=== PATIENT | female | born 1970 | race Two or more races ===

== ENCOUNTER 2024-05-19 06:00 | Day surgery (SDC) | payer OTHER ==
[2024-05-13 12:02] VITALS: BP 95/65
[~2024-05-19] VITALS: Ht 165.1 cm; Wt 107.5 kg
[~2024-05-19 06:00] MED LIST: COZAAR100 MG PO; FARXIGA10 MG PO; LORAZEPAM0.5 MG PO; PROZAC10 MG PO
[2024-05-19] MEDS ORDERED: CEFAZOLIN SODIUM 1,000 MG VIAL ONE (11:18)
== END 2024-05-19 15:15 | disposition home or self-care (01) ==
LOC: CIR.AMB 06:00
PROVIDERS: ATTEND Orthopaedic Surgery Hand Surgery
DX: G56.02 Carpal tunnel syndrome, left upper limb (principal); I10 Essential (primary) hypertension; K29.70 Gastritis, unspecified, without bleeding

== ENCOUNTER 2024-10-06 05:12 | Day surgery (SDC) | payer OTHER ==
[2024-09-28 11:43] VITALS: BP 108/73
[~2024-10-06] VITALS: Ht 165.1 cm; Wt 108.9 kg
[~2024-10-06 05:12] MED LIST changes: +METFORMIN HCL1000 M2 PO
[2024-10-06] MEDS ORDERED: CEFAZOLIN SODIUM 1,000 MG VIAL ONE (06:51)
[2024-10-06] MEDS ORDERED: BUPIVACAINE HCL/MPF 0.5% 30ML VIAL ONE (07:20)
== END 2024-10-06 11:10 | disposition home or self-care (01) ==
LOC: CIR.AMB 05:12
PROVIDERS: ATTEND Orthopaedic Surgery Hand Surgery
DX: G56.01 Carpal tunnel syndrome, right upper limb (principal)